=== PATIENT | male | born 1950 | race Caucasian/White ===

== ENCOUNTER 2022-02-28 00:35 | Day surgery (SDC) | payer OTHER, SELFPAY ==
--- NOTE | 2022-02-22 10:08 | PC.NURSE ---
Report to the Outpatient Waiting Room, entrance under the green pavilion located off [facility], at time ____1000___ on date __02/28/22 . Planned Procedure Time: __1200 . Time changes happen often and if your time is changed the preop area will call you the afternoon before. - You and your visitor will be asked to self-screen and do not enter if you have any COVID symptoms. - Only one visitor is requested with a max of two and NO children visitors are allowed at this time. - The patient visitor may be requested to leave or wait in car when not with patient due to distancing restrictions. - A mask is optional within the hospital. Patients may have clear liquids (water, carbonated beverages, clear teas, apple juice) until 3 hours prior to surgery with a maximum of 20 ounces. - No food from midnight until time of surgery - Infants may have breast milk until 4 hours before surgery, formula 6 hours prior to surgery. - Children will be allowed to drink immediately following surgery. If applicable, please bring a bottle or sippy cup to assist with drinking. Juice, water, soda, and popsicles are readily available. For infants on formula, please bring formula the day of surgery. Pacifiers are allowed. Take the following medications with a SIP of water the morning of surgery: __NONE Medications to discontinue per physician _ALL VITAMINS AND SUPPLEMENTS 3 DAYS PRE OP LAST DOSE 02/24/22 HIBICLENS SHOWER MORNING OF SURGERY Please no make-up, nail gibraltarian, hairspray, perfume, deodorant, or body powder the day of surgery. No jewelry (including any body piercings) or valuables the day of surgery, leave them at home. Please take a shower or bath the night before, or the morning of, surgery with an antibacterial soap. Wear comfortable, loose fitting clothing. Children are encouraged to wear pajamas. - Jewelry must be removed prior to entering the operating room. Rings and piercings that are not removed may be cut off. - The hospital will not accept responsibility for valuables. - Please leave all valuables, including medications, at home the day of surgery. If you are going home after surgery, a licensed after school driver must drive you home. - NO public transportation without another adult if you receive anesthesia. - We recommend that an adult stay with you for 24 hours following discharge. - We also recommend that you do not drive, make important decision, drink alcoholic beverages, or take any drugs that were not prescribed by your health care provider for at least 24 hours after your discharge time. Follow any additional instructions given to you from your surgeon. If you or anyone in your household have experienced Covid symptoms in the past week, please notify your surgeon or the nurse liaison at the phone number below for possible testing. Telephone instructions given to __PATIENT and asked if any additional questions and then verbalized understanding. Patient advised to call surgeon office or pre surgery nurse liaison [phone] if any additional questions.
[2022-02-22 10:14] VITALS: BMI 26.4
--- NOTE | 2022-02-27 12:12 | P.PNAN_ITS ---
Anes - Initial Pre Proc Eval Procedure: Operation Date: 02/28/22 12:00 Proposed Procedures p Bilateral Inguinal Hernia Repair with Mesh - Zain Silver MD Date/Time: 02/27/22 12:12 Surgeon: Zain Silver MD Pre Op Diagnosis: Bilateral Inguinal Hernia Patient Data Age: 71 Gender: M Height: 1.85 m Weight: 90.75 kg Allergies Allergy/AdvReac Type Severity Reaction Status Date / Time Penicillins Allergy Unknown Swelling/HI Verified 02/28/22 10:49 VES Home Medications Medication Instructions Recorded Confirmed Type sildenafil 25 mg tablet (Viagra) 25 mg PO DAILY PRN Erectile 01/15/22 02/22/22 History Dysfunction ascorbic acid (vitamin C) 500 mg 500 mg PO DAILY 02/22/22 02/28/22 History capsule biotin 10,000 mcg capsule 10,000 mcg PO DAILY 02/22/22 02/28/22 History cyanocobalamin (vitamin B-12) 1,000 mcg PO DAILY 02/22/22 02/28/22 History 1,000 mcg tablet zinc 50 mg tablet 50 mg PO DAILY 02/22/22 02/28/22 History hydrocodone 5 mg-acetaminophen 325 1 - 2 tablet PO Q6H PRN pain #20 02/28/22 Rx mg tablet tabs ibuprofen 600 mg tablet 600 mg PO Q6H PRN pain #14 tabs 02/28/22 Rx Patient hx anesthesia problems: none Family hx anesthesia problems: none Results Review: All pre-operative results and documents have been reviewed as part of the pre- operative evaluation. [facility] Past Medical History Medical History Erectile dysfunction History of atrial fibrillation Surgical History Surgical History History of incisional hernia repair Incisional hernia repair with Parietex composite ventral patch 4.6cm in underlay fashion 12/2015 Hx laparoscopic cholecystectomy Laparoscopic cholecystectomy 03/2012 Family History Family History Father Malignant neoplasm of prostate Family history of heart disease in male family member before age 55 Mother Family history of pancreatic cancer Other Cancer Diabetes mellitus Heart disease Social History Social History Smoking status: Never smoker Alcohol intake: current Living arrangements: with family Spiritual care concerns: No Anes - Eval Final PreProcedure Day of Procedure 02/27/22 12:12 Patient weight: overweight Heart: regular rate and rhythm Lungs: clear to auscultation Airway: Mallampati scale class II Neurological: alert and oriented Last oral intake: >/= 8 hours ASA classification: III Emergent: no Anesthetic plan: proceed Anesthesia type and monitoring: general GIVS and standard monitoring Results Review: All pre-operative results and documents have been reviewed as part of the pre- operative evaluation. Informed Consent: The patient's anesthetic plan and its attendant risks and benefits were discussed with the patient/family/POA. Questions were solicited and answers provided to the satisfaction of the patient/family/POA.
--- NOTE | 2022-02-27 16:01 | PM.SD2 ---
Same Day Admit/Disch: HPI History of Present Illness Chief complaint: Bilateral Inguinal Hernia Narrative: Adria Barrera is a 71 year old male who, while at work, had to lift some heavy exercise equipment and felt bilateral groin pain. This was back in December. Soon thereafter, he noticed a bulge that was large in the right groin and a smaller fullness in the left groin. Patient was then seen in the office. He was found to have fairly large bilateral inguinal hernias. He is taken to surgery now for repair of these hernias. [facility] Past Medical History Medical History Erectile dysfunction History of atrial fibrillation Surgical History Surgical History History of incisional hernia repair Incisional hernia repair with Parietex composite ventral patch 4.6cm in underlay fashion 12/2015 Hx laparoscopic cholecystectomy Laparoscopic cholecystectomy 03/2012 Family History Family History Father Malignant neoplasm of prostate Family history of heart disease in male family member before age 55 Mother Family history of pancreatic cancer Other Cancer Diabetes mellitus Heart disease Social History Social History Smoking status: Never smoker Alcohol intake: current Living arrangements: with family Spiritual care concerns: No Same Day Admit/Disch: Med Pre-admit Medications Home Medications Medication Instructions Recorded Confirmed Type sildenafil 25 mg tablet (Viagra) 25 mg PO DAILY PRN Erectile 01/15/22 02/22/22 History Dysfunction ascorbic acid (vitamin C) 500 mg 500 mg PO DAILY 02/22/22 02/28/22 History capsule biotin 10,000 mcg capsule 10,000 mcg PO DAILY 02/22/22 02/28/22 History cyanocobalamin (vitamin B-12) 1,000 mcg PO DAILY 02/22/22 02/28/22 History 1,000 mcg tablet zinc 50 mg tablet 50 mg PO DAILY 02/22/22 02/28/22 History hydrocodone 5 mg-acetaminophen 325 1 - 2 tablet PO Q6H PRN pain #20 02/28/22 Rx mg tablet tabs ibuprofen 600 mg tablet 600 mg PO Q6H PRN pain #14 tabs 02/28/22 Rx Exam Const: General: comfortable, no acute distress, alert and awake HENMT: Head: normocephalic and atraumatic Mouth: Yes Normal oral and palatal mucosa present Eyes: Conjunctivae: conjunctivae normal Pupils: Equal, round and reactive pupils present EOM: EOMs intact bilaterally Neck: Neck: normal visual inspection, no lymphadenopathy and nontender Resp: Effort & Inspection: normal respiratory effort Auscultation: clear to auscultation bilaterally Cardio: Rate: regular rate Rhythm: regular rhythm Heart sounds: no gallops, no murmurs and no rubs GI: Inspection: non-distended GI Palp: Yes Soft to palpation, No Tenderness to palpation present (GI), No Hepatomegaly present and No Splenomegaly present : Male General Exam: Yes hernia (Bilateral reducible inguinal hernias, both large, outside Hesselbach triang) and Yes other (Right-sided hernia tender) Penis: Yes normal penis Scrotum: scrotum normal Testes: Testes normal Skin: Lesions: no lesions Rashes: no rashes Neuro: General: no focal motor deficits and CN's II-XI intact bilaterally Cranial nerves: Yes Equal, round and reactive pupils present, Yes Bilaterally intact EOM present, Yes facial symmetry and Yes Midline tongue present Speech: normal speech Motor exam (neuro): 5/5 motor strength present throughout and Motor abnormalities not present Extrem: General: no clubbing, cyanosis or edema and edema Psych: Affect: normal affect Thought process: Normal thought process present Insight: Good insight present (Psych) DS: Summary Time Spent with Patient Time attestation: Total time spent providing and/or coordinating discharge services: DS: Admitting Diagnosis Discharge Date 02/28/2022 Admitting Diag
[2022-02-28] VITALS (8 sets, daily range): BP systolic 111–172; BP diastolic 66–94; PULSE 56–72; RESP 12–20; TEMP 36.3; O2SAT 96–100
[2022-02-28] MEDS: ACETAMINOPHEN 500 MG TABLET 1000 MG PO (10:51)
[2022-02-28] MEDS: LACTATED RINGERS 1,000 ML 30 ML IV CONT ×3 (11:00→15:03)
[2022-02-28] MEDS: KETOROLAC 15 MG/ML VIAL (*BKC) IV PUSH (11:02)
--- NOTE | 2022-02-28 11:22 | WPDANESEPPF ---
Anes - Initial Pre Proc Eval Procedure: Operation Date: 02/28/22 12:00 Proposed Procedures p Bilateral Inguinal Hernia Repair with Mesh - Zain Silver MD Date/Time: 02/28/22 11:22 Surgeon: Zain Silver MD Pre Op Diagnosis: Bilateral Inguinal Hernia Patient Data Age: 71 Gender: M Height: 1.85 m Weight: 90.75 kg Allergies Allergy/AdvReac Type Severity Reaction Status Date / Time Penicillins Allergy Unknown Swelling/HI Verified 02/28/22 10:49 VES Home Medications Medication Instructions Recorded Confirmed Type sildenafil 25 mg tablet (Viagra) 25 mg PO DAILY PRN Erectile 01/15/22 02/22/22 History Dysfunction ascorbic acid (vitamin C) 500 mg 500 mg PO DAILY 02/22/22 02/28/22 History capsule biotin 10,000 mcg capsule 10,000 mcg PO DAILY 02/22/22 02/28/22 History cyanocobalamin (vitamin B-12) 1,000 mcg PO DAILY 02/22/22 02/28/22 History 1,000 mcg tablet zinc 50 mg tablet 50 mg PO DAILY 02/22/22 02/28/22 History Patient hx anesthesia problems: none Family hx anesthesia problems: post op nausea/vomiting Results Review: All pre-operative results and documents have been reviewed as part of the pre-operative evaluation. [facility] Past Medical History Medical History Erectile dysfunction History of atrial fibrillation Surgical History Surgical History History of incisional hernia repair Incisional hernia repair with Parietex composite ventral patch 4.6cm in underlay fashion 12/2015 Hx laparoscopic cholecystectomy Laparoscopic cholecystectomy 03/2012 Family History Family History Father Malignant neoplasm of prostate Family history of heart disease in male family member before age 55 Mother Family history of pancreatic cancer Other Cancer Diabetes mellitus Heart disease Social History Social History Smoking status: Never smoker Alcohol intake: current Living arrangements: with family Spiritual care concerns: No Anes - Eval Final PreProcedure Day of Procedure 02/28/22 11:22 Patient weight: overweight Heart: regular rate and rhythm Lungs: clear to auscultation Airway: Mallampati scale class III Neurological: alert and oriented Last oral intake: >/= 8 hours ASA classification: II Emergent: no Anesthetic plan: proceed Anesthesia type and monitoring: general (possible LMA) GIVS and LMA and standard monitoring Results Review: All pre-operative results and documents have been reviewed as part of the pre-operative evaluation. Informed Consent: The patient's anesthetic plan and its attendant risks and benefits were discussed with the patient/family/POA. Questions were solicited and answers provided to the satisfaction of the patient/family/POA.
[2022-02-28] MEDS: MIDAZOLAM HCL (*CRX) 2 MG/2 ML VIAL 1 MG IV PUSH (11:35)
--- NOTE | 2022-02-28 11:35 | WPDHPUPDATE1 ---
History and Physical Update Update Date/Time: 02/28/22 11:35 History and Physical has been reviewed, including an updated exam of the patient. There are NO changes in the patient's condition. Risks, benefits, and alternatives have been discussed and questions answered. Patient agrees to proceed with procedure.
[2022-02-28] MEDS: ceFAZolin 2 GM/D5W 50 ML 2 GM/50 ML BAG IVPB (12:02)
[2022-02-28] MEDS: LIDOCAINE HCL 2% LOCAL INJ 20 ML VIAL 40 ML INFILTRATE (12:29)
--- NOTE | 2022-02-28 16:03 | W.PM.PROC2 ---
Procedure Note - Detailed Date of Procedure 02/28/22 Pre-op Diagnosis Bilateral Inguinal Hernia Post-op Diagnosis Same Procedure Performed Repair bilateral inguinal hernias with PerFix Light plug and patch Surgeon Zain Silver MD Library Associate Yolanda Tang ELECTRON MICROSCOPIST Anesthesia General (LMA), Local (2% lidocaine plain) and Other (Xaracoll) Indications Patient was seen in the office and noted to have large inguinal hernias on both the right and the left side. He relates this to lifting heavy exercise equipment while at work. He is taken to surgery now for repair of each of these hernias. Findings Both hernias were large direct inguinal hernias. There was no indirect hernia on either side. The left side was actually a little larger than the right. Description of Procedure Patient was taken to surgery and anesthetic was introduced. Prep and drape of both groins and genitalia was carried out. We started on the patient's right side. The proposed incision was marked on the right inguinal area. Local anesthetic was infiltrated into the proposed incision as well as the deeper subcutaneous tissues. Incision was made and dissection was carried down through the subcutaneous. Crossing veins were cauterized and divided. We continued our dissection down to the external oblique aponeurosis. The aponeurosis was exposed as was the external ring. There was bulging of a hernia through the external ring as well. I infiltrated local deep to the aponeurosis in the area of the spermatic cord. I then opened the aponeurosis laterally and extended this incision medially through the external ring. We carefully dissected the leaves of the aponeurosis free from the underlying spermatic cord contents. The hernia was quite large and the ileoinguinal nerve was preserved but it was very diminutive at the edge of the external ring. We left the ileoinguinal nerve attached to the cord throughout the surgery. Once the inguinal canal was exposed, the hernia was fairly easily seen. It was dissected free from the spermatic cord. It was a large hernia taking up most of the direct space. We dissected any cremasteric fiber or other loose tissue overlying the hernia sac. Eventually the hernia was dissected out circumferentially and completely freed from the cord. I then scored through the transversalis fascia circumferentially around the neck of the hernia about 1 cm away from the fascial edge. I then dunked the hernia into the retroperitoneum. Even though it was a large hernia the defect was not particularly large and a large PerFix Light plug and patch were chosen. The plug was placed in the defect. The edges were sutured to the transversalis fascia with interrupted 3-0 Vicryl suture. The defect was also partially closed with interrupted 3-0 Vicryl suture. I then looked in the spermatic cord for any indirect hernias. After some dissection, I did not see any sign of an indirect hernia. We then cut the patch to the appropriate size. It was placed over the inguinal canal floor such that the lateral leaves with passed beyond the cord. A half piece of Xaracoll was then laid over the patch. The cord and ilioinguinal nerve were then laid over the patch. The external oblique aponeurosis was then closed with interrupted 3-0 Vicryl suture. A 2nd half piece of Xaracoll was placed over the external oblique. Lillie's fascia was then closed with interrupted 3-0 Vicryl suture. Another half piece of Xaracoll was placed in the subcutaneous. Subcuticular 4-0 Vicryl skin suture were used to loosely approximate the skin. Finally a running 4-0 Monocryl skin suture was used to close the skin. I then changed sides with the 1st assistant baseball coach and went to the patient's left side. A mirror image left inguinal incision was drawn on the skin. Local anesthetic was infiltrated in the area of this incision and in the deeper subcutaneous tissues. Incision was made in in similar fashion dissection was carried down
[2022-02-28] MEDS: oxyCODONE HCL (*CRX) 5 MG TAB IR PO (16:20)
== END 2022-02-28 16:25 | disposition home or self-care (01) ==
PROVIDERS: PCP Family Medicine Sports Medicine; Visit Provider Surgery
PROC: (CPT 49505; principal; 2022-02-28 12:00)
DX: K40.20 Bilateral inguinal hernia, without obstruction or gangrene, not specified as recurrent (principal)
CPT/HCPCS: 49505; A9270; C1781; J0690; J1100; J1170; J1885; J2250; J2405; J2704; J3010; J7120

== ENCOUNTER 2023-02-06 10:33 | Outpatient (CLI) | payer MEDICARE, SELFPAY | END 2023-02-06 10:34 | disposition home or self-care (01) | PROVIDERS: PCP Family Medicine; Visit Provider Surgery | DX: K40.91 Unilateral inguinal hernia, without obstruction or gangrene, recurrent (principal); Z01.818 Encounter for other preprocedural examination | CPT/HCPCS: 36415; 86850; 86900; 86901 ==

== ENCOUNTER 2023-02-12 01:09 | Day surgery (SDC) | payer MEDICARE, SELFPAY ==
[2023-01-31 14:35] VITALS: BMI 28.4
--- NOTE | 2023-01-31 14:45 | PC.NURSE ---
PRE-OP INSTRUCTIONS, PLEASE READ CAREFULLY Report to the Outpatient Waiting Room, entrance under the green pavilion located off [facility], at time _1030_ on date _02/12/23_. Planned Procedure Time: _1230_. Time changes happen often and if your time is changed the preop area will call you the afternoon before. - You and your visitor will be asked to self-screen and do not enter if you have any COVID symptoms. - A mask is optional within the hospital at this time. Patients may have clear liquids (water, carbonated beverages, clear teas, apple juice) until 3 hours prior to surgery with a maximum of 20 ounces. - No food from midnight until time of surgery Take the following medications with a SIP of water the morning of surgery: _NONE_ DO NOT STOP ANY OF YOUR OTHER PRESCRIPTION MEDICATIONS PRIOR TO SURGERY ?EXCEPT THE FOLLOWING Medications to discontinue per ANESTHESIA - _VITAMINS & SUPPLEMENTS 3 DAYS PRIOR TO SURGERY, Date to take last dose 02/08/23_ Please no make-up, nail angolan, hairspray, perfume, deodorant, or body powder the day of surgery. No jewelry (including any body piercings) or valuables the day of surgery, leave them at home. Please take a shower or bath the night before, or the morning of, surgery with an antibacterial soap. Wear comfortable, loose fitting clothing. Children are encouraged to wear pajamas. - Jewelry must be removed prior to entering the operating room. Rings and piercings that are not removed may be cut off. - The hospital will not accept responsibility for valuables. - Please leave all valuables, including medications, at home the day of surgery. If you are going home after surgery, a licensed sprinkler truck driver must drive you home. - NO public transportation without another adult if you receive anesthesia. - We recommend that an adult stay with you for 24 hours following discharge. - We also recommend that you do not drive, make important decision, drink alcoholic beverages, or take any drugs that were not prescribed by your health care provider for at least 24 hours after your discharge time. Follow any additional instructions given to you from your surgeon. If you or anyone in your household have experienced Covid symptoms in the past week, please notify your surgeon or the nurse liaison at the phone number below for possible testing. Telephone instructions given to _PATIENT_and asked if any additional questions and then verbalized understanding. Patient advised to call surgeon office or pre surgery nurse liaison [phone] if any additional questions.
--- NOTE | 2023-02-09 11:35 | PM.SD2 ---
Same Day Admit/Disch: HPI History of Present Illness Chief complaint: recurrent left inguinal hernia Narrative: Adria Barrera is a 72 year old male who, in February of this year, had bilateral open inguinal hernia repairs with mesh. In the middle of October, he noted a recurrent bulge on the left side. He was seen in the office and found to have a recurrent left inguinal hernia. He is taken to surgery now for robotic, laparoscopic repair of recurrent left inguinal hernia with mesh. [facility] Past Medical History Medical History Erectile dysfunction History of atrial fibrillation Surgical History Surgical History History of incisional hernia repair Incisional hernia repair with Parietex composite ventral patch 4.6cm in underlay fashion 12/2015 Hx laparoscopic cholecystectomy Laparoscopic cholecystectomy 03/2012 S/P inguinal hernia repair repair bilateral inguinal hernia w/PerFix Light plug & patch 02/28/22 Family History Family History Father Malignant neoplasm of prostate Family history of heart disease in male family member before age 55 Mother Family history of pancreatic cancer Other Cancer Diabetes mellitus Heart disease Social History Social History Smoking status: Never smoker Second hand tobacco smoke exposure: No Alcohol intake: current Drinks per week: 1 Substance use: never Substance use type: does not use Living arrangements: with family Spiritual care concerns: No Same Day Admit/Disch: Med Pre-admit Medications Home Medications Medication Instructions Recorded Confirmed Type sildenafil 25 mg tablet (Viagra) 25 mg PO DAILY PRN Erectile 01/15/22 02/12/23 History Dysfunction ascorbic acid (vitamin C) 500 mg 500 mg PO DAILY 02/22/22 02/12/23 History capsule biotin 10,000 mcg capsule 10,000 mcg PO DAILY 02/22/22 02/12/23 History cyanocobalamin (vitamin B-12) 1,000 mcg PO DAILY 02/22/22 02/12/23 History 1,000 mcg tablet zinc 50 mg tablet 50 mg PO DAILY 02/22/22 02/12/23 History ibuprofen 600 mg tablet 600 mg PO Q6H PRN pain #14 tabs 02/12/23 Rx oxycodone-acetaminophen 5 mg-325 0.5 - 1 tablet PO Q6H PRN pain #10 02/12/23 Rx mg tablet tabs Review of Systems Review of Systems All systems reviewed & are unremarkable except as noted in HPI and below (HPI and those items noted below:) Constitutional Constitutional: Denies chills and Denies fever(s) Cardiovascular Cardiovascular: Denies chest pain, Denies diaphoresis, Denies dyspnea and Denies paroxysmal nocturnal dyspnea Respiratory Respiratory: Denies chest congestion, Denies cough and Denies dyspnea Integumentary/Breasts Skin/Breast: Denies lesions and Denies rash Exam Const: General: comfortable, no acute distress, alert and awake HENMT: Head: normocephalic and atraumatic Mouth: Yes Normal oral and palatal mucosa present Eyes: Conjunctivae: conjunctivae normal Pupils: Equal, round and reactive pupils present EOM: EOMs intact bilaterally Neck: Neck: normal visual inspection, no lymphadenopathy and nontender Resp: Effort & Inspection: normal respiratory effort Auscultation: clear to auscultation bilaterally Cardio: Rate: regular rate Rhythm: regular rhythm Heart sounds: no gallops, no murmurs and no rubs GI: Inspection: non-distended GI Palp: Yes Soft to palpation, No Tenderness to palpation present (GI), No Hepatomegaly present and No Splenomegaly present : Male General Exam: Yes hernia (wide based bulge left groin,nontender, reducible), No tenderness and Yes other (bilat inguinal scars) Penis: Yes normal penis Scrotum: scrotum normal Testes: Testes normal Skin: Lesions: no lesions Rashes: no rashes Neuro: General: no focal motor deficits and CN's II-XI intact bilaterally Cranial ne
[2023-02-12] VITALS (9 sets, daily range): BP systolic 118–177; BP diastolic 56–96; PULSE 55–86; RESP 14–24; TEMP 36.4–36.7; O2SAT 96–99
--- NOTE | 2023-02-12 07:16 | WPDHPUPDATE1 ---
History and Physical Update Update Date/Time: 02/12/23 07:16 History and Physical has been reviewed, including an updated exam of the patient. There are NO changes in the patient's condition. Risks, benefits, and alternatives have been discussed and questions answered. Patient agrees to proceed with procedure.
[2023-02-12] MEDS: LACTATED RINGERS 1,000 ML 30 ML IV CONT ×2 (11:09→14:41)
[2023-02-12] MEDS: KETOROLAC 15 MG/ML VIAL (*BKC) IV PUSH (11:11)
[2023-02-12] MEDS: ACETAMINOPHEN 500 MG TABLET 1000 MG PO (11:11)
--- NOTE | 2023-02-12 11:39 | WPDANESEPPF ---
Anes - Initial Pre Proc Eval Procedure: Operation Date: 02/12/23 12:30 Proposed Procedures p Robotic Laparoscopic Recurrent Left Inguinal Hernia Repair with Mesh - Zain Silver MD Date/Time: 02/12/23 11:39 Surgeon: Zain Silver MD Pre Op Diagnosis: recurrent left inguinal hernia Patient Data Age: 72 Gender: M Height: 1.83 m Weight: 95 kg Last Vital Signs Temp 36.4 C 02/12/23 10:36 Pulse 82 02/12/23 10:36 Resp 18 02/12/23 10:36 BP 166/91 H 02/12/23 10:36 Pulse Ox 99 02/12/23 10:36 O2 Del Method Room Air 02/12/23 10:36 Allergies Allergy/AdvReac Type Severity Reaction Status Date / Time Penicillins Allergy Unknown Swelling/HI Verified 02/12/23 10:39 VES Home Medications Medication Instructions Recorded Confirmed Type sildenafil 25 mg tablet (Viagra) 25 mg PO DAILY PRN Erectile 01/15/22 02/12/23 History Dysfunction ascorbic acid (vitamin C) 500 mg 500 mg PO DAILY 02/22/22 02/12/23 History capsule biotin 10,000 mcg capsule 10,000 mcg PO DAILY 02/22/22 02/12/23 History cyanocobalamin (vitamin B-12) 1,000 mcg PO DAILY 02/22/22 02/12/23 History 1,000 mcg tablet zinc 50 mg tablet 50 mg PO DAILY 02/22/22 02/12/23 History Patient hx anesthesia problems: none Family hx anesthesia problems: none Results Review: All pre-operative results and documents have been reviewed as part of the pre-operative evaluation. [facility] Past Medical History Medical History Erectile dysfunction History of atrial fibrillation Surgical History Surgical History History of incisional hernia repair Incisional hernia repair with Parietex composite ventral patch 4.6cm in underlay fashion 12/2015 Hx laparoscopic cholecystectomy Laparoscopic cholecystectomy 03/2012 S/P inguinal hernia repair repair bilateral inguinal hernia w/PerFix Light plug & patch 02/28/22 Family History Family History Father Malignant neoplasm of prostate Family history of heart disease in male family member before age 55 Mother Family history of pancreatic cancer Other Cancer Diabetes mellitus Heart disease Social History Social History Smoking status: Never smoker Second hand tobacco smoke exposure: No Alcohol intake: current Drinks per week: 1 Substance use: never Substance use type: does not use Living arrangements: with family Spiritual care concerns: No Anes - Eval Final PreProcedure Day of Procedure 02/12/23 11:39 Patient weight: overweight Heart: regular rate and rhythm Lungs: clear to auscultation Airway: Mallampati scale class II Neurological: alert and oriented Last oral intake: >/= 8 hours ASA classification: II Emergent: no Anesthetic plan: proceed Anesthesia type and monitoring: general ETT and standard monitoring Results Review: All pre-operative results and documents have been reviewed as part of the pre-operative evaluation. Informed Consent: The patient's anesthetic plan and its attendant risks and benefits were discussed with the patient/family/POA. Questions were solicited and answers provided to the satisfaction of the patient/family/POA.
--- NOTE | 2023-02-12 12:26 | W.PM.PROC2 ---
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 About 3 months ago he noticed a recurrent bulge in the left inguinal region. He was seen in the office and found to have a wide-based reducible recurrent left inguinal hernia. He is taken to surgery at this time for robotic laparoscopic repair with mesh Findings Patient had a large direct inguinal hernia. The plug from his previous repair was completely disrupted from the direct space and was lying inside the abdomen on its side. No hernia noted on the right side. No other significant findings. Description of Procedure Patient was taken to surgery and induced into general anesthesia. The abdomen is prepped and draped. Trocars were placed in the usual fashion using local anesthetic and placing 1st a 5 mm applied Medical optical trocar. 8 mm robotic trocars were placed under direct visualization and the 5 mm trocar was switched out for an 8 mm. The robot was brought in the field and the camera was docked and targeted. The operating arms were then docked and instruments were positioned appropriately. The surgeon broke scrub and went to the robotic console. A peritoneal flap was started above the inguinal canal structures. The flap was taken down broadly. The left rectus muscle was seen. We followed the left rectus muscle down to Abhi's ligament. We crossed the midline over to the medial aspect of the right rectus and the pubis. Laterally dissection was carried down posterior to the pectinate line. The cord structures were dissected from the lateral aspect of the hernia sac and from the overlying peritoneum. We then gradually began to reduce the hernia sac. The transversalis fascia was carefully dissected off the hernia sac and left in the hernia defect. Eventually we took down the entire direct hernia sac and then dissected the peritoneum at least 4 cm posterior to the lower margin of the hernia defect. I then continued dissecting on the medial aspect of the hernia sac and the lateral aspect of Abhi's ligament. The precipitator operator foramen was found. I dissected at least 2 cm posterior to Abhi's ligament and the pubis. Some further dissection was carried out to ensure that the peritoneal reflection was dissected posteriorly far enough that there would not be any peritoneum encroaching and causing a posteromedial recurrence. All looked good. A 17 x 12 left mid 3D max mesh was then placed in the abdomen. 3-0 Vicryl and 3-0 V lock suture were placed in the abdomen. The mesh was positioned appropriately. 3-0 Vicryl sutures were used to secure it to Abhi's ligament as well as the anterior abdominal wall on the medial and lateral side of the inferior epigastric vessels. I then used the 3-0 V lock suture to close the peritoneal flap from lateral to medial. There was 1 small hole in the flap which I closed with the remainder of the 3-0 Vicryl suture. All looked good. We then removed the instruments and undocked the robot. CO2 was evacuated from the abdominal cavity. The trocars were then removed. Skin wounds were closed with subcuticular 4-0 Monocryl skin suture. The wounds were dressed with Exofin surgical adhesive. The patient was awakened and taken to recovery in good condition. Sponge and needle counts were correct x2. Implants 17 x 12 cm mid left 3DMax mesh Estimated Blood Loss -5 Drains No Packing No Pathology None sent Complications No immediate complications Condition Stable Disposition PACU [facility] Billing Surgery - Charge Forward: Surgery Billing (Robotic laparoscopic repair recurrent left inguinal hernia with mesh)
[2023-02-12] MEDS: ceFAZolin 2 GM/D5W 50 ML 2 GM/50 ML BAG IVPB (12:32)
[2023-02-12] MEDS: ONDANSETRON INJ 4 MG/2 ML VIAL IV PUSH (16:13)
[2023-02-12] MEDS: oxyCODONE HCL (*CRX) 5 MG TAB IR PO (16:25)
== END 2023-02-12 17:35 | disposition home or self-care (01) ==
PROVIDERS: Visit Provider Surgery
PROC: 8E0Y4CZ Robotic Assisted Procedure of Lower Extremity, Percutaneous Endoscopic Approach (ICD-10-PCS; CPT 49650; principal; 2023-02-12 12:30)
DX: K40.91 Unilateral inguinal hernia, without obstruction or gangrene, recurrent (principal); N52.9 Male erectile dysfunction, unspecified; Z98.890 Other specified postprocedural states; Z90.49 Acquired absence of other specified parts of digestive tract; Z86.79 Personal history of other diseases of the circulatory system; Z82.49 Family history of ischemic heart disease and other diseases of the circulatory system; Z80.42 Family history of malignant neoplasm of prostate; Z80.0 Family history of malignant neoplasm of digestive organs
CPT/HCPCS: 49651; S2900; 36415; 86850; 86900; 86901; 88300; A9270; C1781; J0690; J1100; J1170; J1596; J1885; J2250; J2371; J2405; J2704; J2710; J3010; J7120

== ENCOUNTER 2024-04-28 17:39 | Emergency (ER) | payer MEDICARE, SELFPAY ==
--- NOTE | 2024-04-28 17:43 | ED_ITS ---
HPI - Male Genitourinary General Chief complaint: Urogenital-Male Stated complaint: BLOOD IN URINE Source: patient and RN notes reviewed Mode of arrival: ambulatory Limitations: no limitations History of Present Illness HPI Narrative: 73-year-old male presented for complaint of blood in urine. 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 Endorses burning with urination, frequency and abdominal bloating. Denies abdominal pain, flank pain, nausea, vomiting, constipation, diarrhea, fevers or chills. Reports two large BMs today, then developed the bloating symptoms. denies blood in stool. Pt does not take anticoagulants, denies trauma. Related Data Home Medications ?Medication ?Instructions ?Recorded ?Confirmed ?Last Taken ?Type sildenafil 25 mg tablet (Viagra) 25 mg PO DAILY PRN Erectile 01/15/22 04/22/23 Unknown History Dysfunction ascorbic acid (vitamin C) 500 mg 500 mg PO DAILY 02/22/22 04/22/23 02/24/22 History capsule biotin 10,000 mcg capsule 10,000 mcg PO DAILY 02/22/22 04/22/23 02/24/22 History cyanocobalamin (vitamin B-12) 1,000 mcg PO DAILY 02/22/22 04/22/23 02/24/22 History 1,000 mcg tablet zinc 50 mg tablet 50 mg PO DAILY 02/22/22 04/22/23 02/24/22 History Allergies Allergy/AdvReac Type Severity Reaction Status Date / Time Penicillins Allergy Unknown Swelling/HI Verified 04/28/24 17:51 VES Review of Systems Review of Systems: CONSTITUTIONAL: Denies body aches, fever, chills, or sweats. CARDIOVASCULAR: Denies chest pain, palpitations, or edema. RESPIRATORY: Denies cough or dyspnea. GASTROINTESTINAL: Denies abdominal pain, nausea, vomiting, or diarrhea. GENITOURINARY: Reports dysuria, frequency, urgency, hematuria denies flank pain SKIN: Denies rash, itching, or wounds. MUSCULOSKELETAL: Denies back pain or myalgia. [facility] Past Medical History Medical History Erectile dysfunction History of atrial fibrillation Recurrent inguinal hernia Surgical History Surgical History History of incisional hernia repair Incisional hernia repair with Parietex composite ventral patch 4.6cm in underlay fashion 12/2015 Hx laparoscopic cholecystectomy Laparoscopic cholecystectomy 03/2012 S/P inguinal hernia repair repair bilateral inguinal hernia w/PerFix Light plug & patch 02/28/22 Family History Family History Father Malignant neoplasm of prostate Family history of heart disease in male family member before age 55 Mother Family history of pancreatic cancer Other Cancer Diabetes mellitus Heart disease Social History Social History Smoking status: Never smoker Second hand tobacco smoke exposure: No Alcohol intake: current Drinks per week: 1 Substance use: never Substance use type: does not use Living arrangements: with family Spiritual care concerns: No Comments At time of signature, I have reviewed and agree with nursing past medical, surgical, social and family history unless otherwise noted. Please see nursing chart for further information. There is no relevant family history pertinent to the presenting complaint Exam Narrative: GENERAL: Well-appearing ENT: Mucous membranes pink and moist. CHEST: No respiratory distress. Clear to auscultation. HEART: Regular rate and rhythm. ABDOMEN: Soft, nondistended, normal active bowel sounds. Mild suprapubic tenderness/pressure with palpation. No CVA tenderness SKIN: Warm, dry, no rash. NEURO: No focal deficits. Alert and oriented x3. Gait steady. PSYCH: Normal affect. Course Course Emergency Course: Patient is aware of diagnosis, understands and agrees to treatment plan. Anticipatory guidance given. Patient agrees to follow-up as directed and is aware of reasons to seek care at the emergency department. Portions of this record may have been created with voice recognition software Level of Care: Express Care Visit Vital Signs Vital signs: Reviewed Transfer Transfered to: [place] Transportation: Other (private vehicle) Transfer rationale: Pt is agreeable to transfer. Requests transfer to [facility] via private vehicle. Risks of transportation reviewed with pt including injury, worsening of condition and . v/u. will be driving pt; Report called to hospital, spoke with Shonna Abebe PA-C, accepting physician. Pt is in stable condition at time of transfer. Advised to remain NPO and go directly to the hospital. MDM - Male Genitourinary MDM Narrative Medical decision making narrative: Pt presented with gross hematuria, urine is dark red in color with clots. Advised ER transfer. Differential Diagnosis Differential diagnosis: Likely urinary tract infection, urethritis, prostatitis, acute retention of urine and other (nephrolithiasis, kidney disease, renal cancer, bladder cancer, trauma, blood disorder) Discharge Plan Discharge Clinical Impression: Gross hematuria Patient Disposition: Acute Care Hospital Condition: Stable Patient Language: Turkish Prescriptions: No Action sildenafil [Viagra] 25 mg tablet 25 mg PO DAILY PRN (Reason: Erectile Dysfunction) Rx Instructions: administer 30 minutes to 4 hours before activity zinc 50 mg Tablet 50 mg PO DAILY cyanocobalamin (vitamin B-12) 1,000 mcg Tablet 1,000 mcg PO DAILY biotin 10,000 mcg Capsule 10,000 mcg PO DAILY ascorbic acid (vitamin C) 500 mg Capsule 500 mg PO DAILY Follow-up/Referrals: Nicole,Gordon Moreira MD [Primary Care Provider] - Time of Disposition: 18:10
[2024-04-28 17:53] VITALS: BP 171/99; PULSE 98; RESP 16; TEMP 37; O2SAT 99
== END 2024-04-28 18:05 | disposition short-term general hospital (02) ==
PROVIDERS: Emergency Provider Nurse Practitioner Family; PCP Family Medicine
DX: R31.0 Gross hematuria (principal); I48.91 Unspecified atrial fibrillation
CPT/HCPCS: 99212; G0463

== ENCOUNTER 2024-04-28 18:26 | Emergency (ER) | payer MEDICARE, SELFPAY ==
--- NOTE | ~2024-04-28 | CT_ITS ---
CLINICAL INDICATION: Gross hematuria COMPARISON: None. TECHNIQUE: Multiple contiguous axial images of the abdomen and pelvis were performed both prior to an d following the administration of with 100 mL Omnipaque-350 intravenous contrast The dose-length product (DLP) was 1240.96 mGy-cm. Automated exposure control and iterative reconstruction technique were employed. FINDINGS/OBSERVATIONS: Visualized lower thorax: The bilateral lung bases are clear. The heart is enlarged, without pericardial effusion. Small hiatal hernia is present. Liver: The liver demonstrates homogeneous enhancement and is enlarged measuring 22 cm in longitudinal dimens ion. Gallbladder and biliary system: The gallbladder is surgically absent. Pancreas: The pancreas enhances homogeneously without ductal dilatation. Spleen: The spleen enhances homogeneously and is not enlarged measuring 11 cm in longitudinal dimension. Kidneys: Multiple subcentimeter foci of decreased attenuation within the bilateral kidneys, all demonstrating fluid attenuation and without meeting CT criteria for contrast enhancement. Within the distal 3 cm of the right ureter is abnormal enhancement. Additional abnormal contrast enhancement is identified within the right renal pelvis although the rig ht ureter does not demonstrate increased attenuation until the distal 3 cm. The abnormal enhancement within the right renal pelvis is likely artifactual. Significant bladder wall thickening and edema is identified. Abnormal contrast enhancement is identified within the prostatic urethra, possibly the source of abno rmal bleeding. Adrenal glands: Unremarkable. Gastrointestinal tract: Fecal stasis within the colon. Vasculature: Calcified atherosclerotic disease. Lymph nodes: No pathologically enlarged or morphologically suspicious lymph nodes within the retroperitoneum or at the root of the mesentery. Pelvic structures: As above. Body wall and musculoskeletal: Small fat-containing umbilical hernia. No significant degenerative disease within the lower thoracic or lumbosacral spine. IMPRESSION: Findings within the distal right ureter as well as within the prosthetic urethra of abnormal contrast enhancement for which direct visualization is recommended. No abnormal contrast enhancing lesions are identified within the bilateral kidneys. Significant bladder wall thickening and edema, as detailed above. Hepatomegaly. Reviewed, dictated and finalized at location A. IMPRESSION: Findings within the distal right ureter as well as within the prosthetic urethr a of abnormal contrast enhancement for which direct visualization is recommende d. No abnormal contrast enhancing lesions are identified within the bilateral kidn eys. Significant bladder wall thickening and edema, as detailed above. Hepatomegaly.
--- NOTE | 2024-04-28 18:29 | ED_ITS ---
HPI - Male Genitourinary General Chief complaint: Urogenital-Male <Wilma Shen PA-C - Last Filed: 04/28/24 18:32> Stated complaint: blood in urine <Wilma Shen PA-C - Last Filed: 04/28/24 18:32> Time Seen by Provider: 04/28/24 18:29 <Wilma Shen PA-C - Last Filed: 04/28/24 18:32> Focused HPI: patient is a 73-year-old male who presents the ED with report of gross hematuria. Patient reports he began passing skip red blood today. He has noticed numerous clots in his urine. Reports urinary frequency, small void urine, feeling of incomplete emptying. Reports lots of suprapubic pressure with urination. Denies flank or back pain. Denies nausea, vomiting, fevers. Denies previous history of kidney stones. He is not on any anticoagulation. GENERAL: Mildly uncomfortable-appearing, well-nourished, and in no acute distress. HEAD: Normocephalic, atraumatic. CHEST: Clear to auscultation. ?No respiratory distress. HEART: Regular rate and rhythm.? ABD: No significant focal tenderness. No rebound. NEURO: ?Alert and oriented x3. Patient screened in triage and initial orders placed.? ?Additional care and disposition to be based upon?diagnostic testing and treatment. <Wilma Shen PA-C - Last Filed: 04/28/24 18:32> Source: patient <Wilma Shen PA-C - Last Filed: 04/28/24 18:32> Mode of arrival: ambulatory <DEUCE Bolaños Last Filed: 04/28/24 18:32> Limitations: no limitations <DEUCE Bolaños Last Filed: 04/28/24 18:32> Related Data Home medications: Home Medications ?Medication ?Instructions ?Recorded ?Confirmed ?Last Taken ?Type sildenafil 25 mg tablet (Viagra) 25 mg PO DAILY PRN Erectile 01/15/22 04/22/23 Unknown History Dysfunction ascorbic acid (vitamin C) 500 mg 500 mg PO DAILY 02/22/22 04/22/23 02/24/22 History capsule biotin 10,000 mcg capsule 10,000 mcg PO DAILY 02/22/22 04/22/23 02/24/22 History cyanocobalamin (vitamin B-12) 1,000 mcg PO DAILY 02/22/22 04/22/23 02/24/22 History 1,000 mcg tablet zinc 50 mg tablet 50 mg PO DAILY 02/22/22 04/22/23 02/24/22 History <Wilma Shen PA-C - Last Filed: 04/28/24 18:32> Allergies/Adverse reactions: Allergies Allergy/AdvReac Type Severity Reaction Status Date / Time Penicillins Allergy Unknown Swelling/HI Verified 04/28/24 17:51 VES <DEUCE Bolaños Last Filed: 04/28/24 18:32> Review of Systems 2 Review of Systems: All systems reviewed & are unremarkable except as noted in HPI and below <Shonna Abebe PA-C - Last Filed: 04/28/24 23:53> [facility] Past Medical History Medical History: Medical History Erectile dysfunction History of atrial fibrillation Recurrent inguinal hernia <DEUCE Bolaños Last Filed: 04/28/24 18:32> Surgical History Surgical History: Surgical History History of incisional hernia repair Incisional hernia repair with Parietex composite ventral patch 4.6cm in underlay fashion 12/2015 Hx laparoscopic cholecystectomy Laparoscopic cholecystectomy 03/2012 S/P inguinal hernia repair repair bilateral inguinal hernia w/PerFix Light plug & patch 02/28/22 <DEUCE Bolaños Last Filed: 04/28/24 18:32> Family History Family History: Family History Father Malignant neoplasm of prostate Family history of heart disease in male family member before age 55 Mother Family history of pancreatic cancer Other Cancer Diabetes mellitus Heart disease <DEUCE Bolaños Last Filed: 04/28/24 18:32> Social History Social History: Social History Smoking status: Never smoker Second hand tobacco smoke exposure: No Alcohol intake: current Drinks per week: 1 Substance use: never Substance use type: does not use Living arrangements: with family Spiritual care concerns: No <Wilma Shen PA-C - Last Filed: 04/28/24 18:32> Exam 2 Narrative: GENERAL: Well-appearing, well-nourished, and in no acute distress. HEAD: Normocephalic, atraumatic. EYES: EOMI. CHEST: Clear to auscultation. No respiratory distress. No wheezes rales or rhonchi HEART: Regular rate and rhythm. No murmur heard. Normal peripheral pulses. ABDOMEN: Soft, nontender, nondistended, normal active bowel sounds. EXTREMITIES: Normal range of motion. No edema. SKIN: Warm, dry, no rash. NEURO: No focal deficits. Alert and oriented x3. PSYCH: Normal mood and affect <Shonna Abebe PA-C - Last Filed: 04/28/24 23:53> Course Course Emergency Course: Patient updated on his workup and agrees with plan of care <Shonna Abebe PA-C - Last Filed: 04/28/24 23:53> Consultations Consultation #1: Spoke with Dr. Leigh about patient and workup. Will follow up in clinic tomorrow for cystoscopy. Will leave in the [place] for now <Shonna Abebe PA-C - Last Filed: 04/28/24 23:53> Date: 04/28/24 <Shonna Abebe PA-C - Last Filed: 04/28/24 23:53> Vital Signs Vital signs: Vital Signs Temperature 98.2 F 04/28/24 18:30 Pulse Rate 103 H 04/28/24 18:30 Respiratory Rate 18 04/28/24 18:30 Blood Pressure 196/120 H 04/28/24 18:30 Pulse Oximetry 100 04/28/24 18:30 Temperature 98.2 F 04/28/24 18:30 Pulse Rate 103 H 04/28/24 18:30 Respiratory Rate 18 04/28/24 18:30 Blood Pressure 196/120 H 04/28/24 18:30 Pulse Oximetry 100 04/28/24 18:30 <DEUCE Bolaños Last Filed: 04/28/24 18:32> Vital Signs Temperature 98.2 F 04/28/24 18:30 Pulse Rate 103 H 04/28/24 18:30 Respiratory Rate 18 04/28/24 18:30 Blood Pressure 196/120 H 04/28/24 18:30 Pulse Oximetry 100 04/28/24 18:30 Temperature 98.2 F 04/28/24 18:30 Pulse Rate 103 H 04/28/24 18:30 Respiratory Rate 18 04/28/24 18:30 Blood Pressure 196/120 H 04/28/24 18:30 Pulse Oximetry 100 04/28/24 18:30 <Shonna Abebe PA-C - Last Filed: 04/28/24 23:53> MDM - Male Genitourinary MDM Narrative Medical decision making narrative: MSE by SANIA in triage. <DEUCE Bolaños Last Filed: 04/28/24 18:32> MSE by SANIA in triage. Patient presents to the ER for hematuria. Patient is afebrile and nontoxic appearing. Blood pressure elevated upon arrival, this down trended without intervention. CBC with leukocytosis to 17.1. Metabolic panel with normal appearing kidney function. Urine with greater than [address] abdomen and pelvis shows findings within the distal right ureter and prostatic urethra of abnormal contrast enhancement, cystoscopy recommended. Significant bladder wall thickening and edema. CBI was started. His urine is now clear. Spoke with Dr. Leigh about patient and workup. Will follow up in clinic tomorrow for cystoscopy. Will leave in the [place] for now <Shonna Abebe PA-C - Last Filed: 04/28/24 23:53> Differential Diagnosis Differential diagnosis: Likely urinary tract infection, prostatitis, acute retention of urine and other (Hemorrhagic cystitis, bladder cancer) <DEUCE Almonte Last Filed: 04/28/24 23:53> Lab Data Attestation: I reviewed the patient's lab results. <DEUCE Almonte Last Filed: 04/28/24 23:53> Result diagrams: 04/28/24 19:03 04/28/24 19:03 <Wilma Shen PA-C - Last Filed: 04/28/24 18:32> Labs: Lab Results 04/28/24 04/28/24 Range/Units 19:03 19:04 WBC 17.1 H (4.5-10.0) K/mm3 RBC 5.46 (4.6-6.20) M/mm3 Hgb 16.9 (14.0-18.0) g/dL Hct 49.2 (42.0-52.0) % MCV 90.1 (80-100) fl MCH 31.0 (26-34) pg MCHC 34.3 (32-36) g/dl RDW 11.9 (11.5-14.5) % Plt Count 300 (150-375) k/mm3 MPV 10.5 H (7.4-10.4) fl Immature Gran % (Auto) 0.3 (0-0.5) % Neut % (Auto) 78.2 H (45.5-73.1) % Lymph % (Auto) 12.5 L (18.3-44.2) % [place] % (Auto) 7.8 (2.6-8.5) % Eos % (Auto) 0.8 (0-4.4) % Baso % (Auto) 0.4 (0.2-1.2) % Lymph # (Auto) 2.14 (0.9-3.2) K/mm3 [place] # (Auto) 1.3 H (0.1-0.6) K/mm3 Eos # (Auto) 0.1 (0-0.3) K/mm3 Baso # (Auto) 0.1 (0.0-0.1) K/mm3 Abs Immat Gran (auto) 0.05 H (0.00-0.031) K/mm3 Absolute Neuts (auto) 13.4 H (1.3-6.7) K/mm3 Absolute Nucleated RBC 0.000 (0.0-0.012) K/mm3 Nucleated RBC % 0.0 (0.0-0.2) % PT 13.8 (11.1-14.7) Seconds INR 1.0 APTT 28.0 (22.3-36.8) Seconds Sodium 137 (137-145) mmol/L Potassium 4.5 (3.4-5.0) mmol/L Chloride 100 (98-107) mmol/L Carbon Dioxide 27 (22-30) mmol/L Anion Gap 10 (4-12) mmol/L BUN 27 H (9-20) mg/dL Creatinine 0.94 (0.7-1.3) mg/dL Estim Creat Clear Calc 66 ml/min Estimated GFR > 60 (59 - ) Glucose 106 (65-110) mg/dL Calcium 9.4 (8.4-10.2) mg/dL Urine Color Red H (Yellow) Urine Appearance Turbid H (Clear) Urine pH TNP Ur Specific [place] TNP Urine Protein TNP Urine Glucose (UA) TNP Urine Ketones TNP Ur Blood (Man) TNP Urine Nitrate TNP Urine Bilirubin TNP Urine Urobilinogen TNP Add Ur Microanalysis Reviewed Leukocyte Esterase Rfl TNP Urine RBC >100 H (0-2) /hpf Urine WBC >100 H (0-3) /hpf Ur Squamous Epith Cells None seen (Few) /hpf Urine Bacteria None seen /hpf Urine Casts 0-2 <Wilma Shen PA-C - Last Filed: 04/28/24 18:32> Lab Results 04/28/24 04/28/24 Range/Units 19:03 19:04 WBC 17.1 H (4.5-10.0) K/mm3 RBC 5.46 (4.6-6.20) M/mm3 Hgb 16.9 (14.0-18.0) g/dL Hct 49.2 (42.0-52.0) % MCV 90.1 (80-100) fl MCH 31.0 (26-34) pg MCHC 34.3 (32-36) g/dl RDW 11.9 (11.5-14.5) % Plt Count 300 (150-375) k/mm3 MPV 10.5 H (7.4-10.4) fl Immature Gran % (Auto) 0.3 (0-0.5) % Neut % (Auto) 78.2 H (45.5-73.1) % Lymph % (Auto) 12.5 L (18.3-44.2) % [place] % (Auto) 7.8 (2.6-8.5) % Eos % (Auto) 0.8 (0-4.4) % Baso % (Auto) 0.4 (0.2-1.2) % Lymph # (Auto) 2.14 (0.9-3.2) K/mm3 [place] # (Auto) 1.3 H (0.1-0.6) K/mm3 Eos # (Auto) 0.1 (0-0.3) K/mm3 Baso # (Auto) 0.1 (0.0-0.1) K/mm3 Abs Immat Gran (auto) 0.05 H (0.00-0.031) K/mm3 Absolute Neuts (auto) 13.4 H (1.3-6.7) K/mm3 Absolute Nucleated RBC 0.000 (0.0-0.012) K/mm3 Nucleated RBC % 0.0 (0.0-0.2) % PT 13.8 (11.1-14.7) Seconds INR 1.0 APTT 28.0 (22.3-36.8) Seconds Sodium 137 (137-145) mmol/L Potassium 4.5 (3.4-5.0) mmol/L Chloride 100 (98-107) mmol/L Carbon Dioxide 27 (22-30) mmol/L Anion Gap 10 (4-12) mmol/L BUN 27 H (9-20) mg/dL Creatinine 0.94 (0.7-1.3) mg/dL Estim Creat Clear Calc 66 ml/min Estimated GFR > 60 (59 - ) Glucose 106 (65-110) mg/dL Calcium 9.4 (8.4-10.2) mg/dL Urine Color Red H (Yellow) Urine Appearance Turbid H (Clear) Urine pH TNP Ur Specific [place] TNP Urine Protein TNP Urine Glucose (UA) TNP Urine Ketones TNP Ur Blood (Man) TNP Urine Nitrate TNP Urine Bilirubin TNP Urine Urobilinogen TNP Add Ur Microanalysis Reviewed Leukocyte Esterase Rfl TNP Urine RBC >100 H (0-2) /hpf Urine WBC >100 H (0-3) /hpf Ur Squamous Epith Cells None seen (Few) /hpf Urine Bacteria None seen /hpf Urine Casts 0-2 <DEUCE Almonte Last Filed: 04/28/24 23:53> Imaging Data Radiologist's impression: ITS Impressions Abdomen/Pelvis CT 04/28/24 21:36 IMPRESSION: Findings within the distal right ureter as well as within the prosthetic urethra of abnormal contrast enhancement for which direct visualization is recommended. No abnormal contrast enhancing lesions are identified within the bilateral kidneys. Significant bladder wall thickening and edema, as detailed above. Hepatomegaly. <DEUCE Almonte Last Filed: 04/28/24 23:53> Critical Care Time Critical Care Time Critical Care Time: No <DEUCE Almonte Last Filed: 04/28/24 23:53> Discharge Plan Discharge Clinical Impression: Gross hematuria, Acute UTI <DEUCE Bolaños Last Filed: 04/28/24 18:32> Patient Disposition: Home, Self-Care <DEUCE Bolaños Last Filed: 04/28/24 18:32> Condition: Improved <DEUCE Bolaños Last Filed: 04/28/24 18:32> Instructions: Antibiotic Form, Urinary Tract Infection in Men (ED), [place] Catheter Placement and Care (ED) <DEUCE Bolaños Last Filed: 04/28/24 18:32> Additional Instructions: Return to the ER if you experience fever, abdominal pain with nausea and vomiting, you are unable to keep down liquids or solids, or any other symptoms that are concerning to you Remain well hydrated. Take oral antibiotic as prescribed Follow up with urology. They should be getting in contact with you to have some follow up tomorrow <DEUCE Bolaños Last Filed: 04/28/24 18:32> Patient Language: [place] <DEUCE Bolaños Last Filed: 04/28/24 18:32> Prescriptions: New cefdinir 300 mg capsule 300 mg PO Q12H 5 Days Qty: 10 0RF No Action sildenafil [Viagra] 25 mg tablet 25 mg PO DAILY PRN (Reason: Erectile Dysfunction) Rx Instructions: administer 30 minutes to 4 hours before activity zinc 50 mg Tablet 50 mg PO DAILY cyanocobalamin (vitamin B-12) 1,000 mcg Tablet 1,000 mcg PO DAILY biotin 10,000 mcg Capsule 10,000 mcg PO DAILY ascorbic acid (vitamin C) 500 mg Capsule 500 mg PO DAILY <Wilma Shen PA-C - Last Filed: 04/28/24 18:32> Follow-up/Referrals: Rivera,Gordon Moreira MD [Primary Care Provider] - Conrado Leigh MD [Physician] - <Wilma Shen PA-C - Last Filed: 04/28/24 18:32>
[2024-04-28 18:30] VITALS: BP 196/120; PULSE 103; RESP 18; TEMP 36.8; O2SAT 100
[2024-04-28 19:11] LABS: Basophils Absolute Auto 0.1 K/mm3 (0.0-0.1); Basophils Percent Auto 0.4 % (0.2-1.2); Eosinophils Absolute Auto 0.1 K/mm3 (0-0.3); Eosinophils Percent Auto 0.8 % (0-4.4); Hematocrit 49.2 % (42.0-52.0); Hemoglobin 16.9 g/dL (14.0-18.0); Immature Granulocyte Absolute 0.05 K/mm3 (0.00-0.031); Immature Granulocyte Percent A 0.3 % (0-0.5); Lymphocytes Absolute Auto 2.14 K/mm3 (0.9-3.2); Lymphocytes Percent Auto 12.5 % (18.3-44.2); Mean Corpuscular HGB Conc 34.3 g/dl (32-36); Mean Corpuscular Volume 90.1 fl (80-100); Mean Platelet Volume 10.5 fl (7.4-10.4); Monocytes Absolute Auto 1.3 K/mm3 (0.1-0.6); Monocytes Percent Auto 7.8 % (2.6-8.5); Neutrophils Absolute Auto 13.4 K/mm3 (1.3-6.7); Neutrophils Percent Auto 78.2 % (45.5-73.1); Platelet Count Result 300 k/mm3 (150-375); Red Blood Count 5.46 M/mm3 (4.6-6.20); Red Cell Distribution Width 11.9 % (11.5-14.5); White Blood Count 17.1 K/mm3 (4.5-10.0)
[2024-04-28 19:22] LABS: Anion Gap 10 mmol/L (4-12); Blood Urea Nitrogen 27 mg/dL (9-20); Calcium 9.4 mg/dL (8.4-10.2); Carbon Dioxide 27 mmol/L (22-30); Chloride 100 mmol/L (98-107); Estimated CRCL calculation 66 ml/min; Estimated Glomerular Filt Rate > 60; Glucose 106 mg/dL (65-110); Potassium 4.5 mmol/L (3.4-5.0); Sodium 137 mmol/L (137-145)
[2024-04-28 19:59] LABS: Appearance Urine Turbid (Clear); Bacteria Urine None Seen /hpf; Color Urine Red (Yellow); Need Manual Microscopic Reviewed; Non Pathogenic Casts 0-2; RBC Urine >100 /hpf (0-2); Squamous Epithelial Cell Urine None Seen /hpf (Few); WBC Urine >100 /hpf (0-3)
[2024-04-28 20:03] LABS: Add Urine Microscopic? YES
[2024-04-28 20:04] LABS: Prothrombin Time 13.8 Seconds (11.1-14.7)
[2024-04-28] MEDS: MORPHINE SULFATE (*CRX) 4 MG/ML INJ IV PUSH (22:29)
[2024-04-28] MEDS: ONDANSETRON INJ 4 MG/2 ML VIAL IV PUSH (22:29)
[2024-04-29 01:00] VITALS: BP 172/82; PULSE 98; RESP 14; O2SAT 98
[2024-04-29 09:34] LABS: Estimated CRCL calculation 62 ml/min; Estimated Glomerular Filt Rate > 60
== END 2024-04-29 01:04 | disposition home or self-care (01) ==
PROVIDERS: Physician Assistant; Emergency Provider Physician Assistant; PCP Family Medicine
DX: N39.0 Urinary tract infection, site not specified (principal); R31.0 Gross hematuria; I48.91 Unspecified atrial fibrillation; Z90.49 Acquired absence of other specified parts of digestive tract
CPT/HCPCS: 36415; 74178; 80048; 81001; 82565; 85025; 85610; 85730; 87040; 87077; 87086; 87186; 96365; 96375; 99284; J0696; J2270; J2405; Q9967

== ENCOUNTER 2025-01-10 15:57 | Emergency (ER) | payer MEDICARE, OTHER, SELFPAY ==
--- OUTSIDE RECORDS SUMMARY | 2024-12-22 05:27 | XMS_ITS | Continuity of Care Document ---
Author Organization [facility] Address [address] [place] [address] Phone Care Team Providers Care Apparatus Repair Mechanic Name Role Phone Leslie Curiel MD Unavailable Unavailable Advance Directives Directive Yes / No Effective Date File Name No Information Encounters Encounter Description Practice Location Reason(s) For Visit Diagnoses Date Provider Providers Copied on Encounter [facility], [address], [place], [place], [id number], tel:[phone] [facility] No Information Veena Nelson. [address] [place] [address], [id number], . tel:[phone] Family History Family Member Type Diagnosis Age At Onset No Information Payers Payer name Insurance type Covered green party ID Authoriza tion(s) [employer] MD[employer] PPO PLANS [id number] Social History Type Description Quantity Date Captured Comments Sex Male Smoking Status No Information Chief Complaint And Reason For Visit No Information Reason For Referral Reason For Referral No Information Plan Of Treatment Date Type Action Status Appointment Tim Barrera BOOKED History Of Present Illness Encounter Date Complaint History Of Prese nt Illness No Information Functional Status Date Functional Assessmen t No Information Instructions Date Instruction Additional Infor mation No Information Assessments Type Assessment Date No Information Patient Care Teams Name Effective Dates (start - stop) Status Members No Information
--- OUTSIDE RECORDS SUMMARY | 2024-12-22 05:27 | XMS_ITS | Continuity of Care Document ---
Author Organization [email or web address] Address [address] [place] [address] Phone Care Team Providers Care Aquatics Assistant Department Head Name Role Phone Leslie Curiel MD Unavailable Unavailable Advance Directives Directive Yes / No Effective Date File Name No Information Encounters Encounter Description Practice Location Reason(s) For Visit Diagnoses Date Provider Providers Copied on Encounter [facility], [address], [place], [place], [id number], tel:[phone] [facility] No Information Veena Nelson. [address] [place] [address], [id number], . tel:[phone] Family History Family Member Type Diagnosis Age At Onset No Information Payers Payer name Insurance type Covered green party ID Authoriza tion(s) [employer] MD[employer] PPO PLANS [id number] Social History Type Description Quantity Date Captured [...]
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
[2025-01-10 16:08] VITALS: BP 185/104; PULSE 77; RESP 16; TEMP 36.4; O2SAT 100
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
[2025-01-10 19:14] VITALS: BP 173/93; PULSE 78; RESP 16; TEMP 36.4; O2SAT 98
[2025-01-10 21:05] VITALS: PULSE 78; RESP 18; O2SAT 100
[2025-01-10 21:17] VITALS: BP 174/86; PULSE 76; RESP 14; O2SAT 100
[2025-01-10 22:23] VITALS: BP 148/88; PULSE 73; RESP 16; O2SAT 97
[2025-01-10 23:44] VITALS: BP 173/93; PULSE 79; RESP 18; O2SAT 95
[2025-01-11 00:31] VITALS: BP 158/91; PULSE 77; RESP 13; O2SAT 96
[2025-01-11 01:00] VITALS: BP 166/93; PULSE 76; RESP 14; O2SAT 97
[2025-01-11 01:30] VITALS: BP 151/92; PULSE 74; RESP 16; O2SAT 96
== END 2025-01-11 02:00 | disposition short-term general hospital (02) ==
PROVIDERS: Emergency Provider Physician Assistant; PCP Family Medicine
DX: S06.360A Traumatic hemorrhage of cerebrum, unspecified, without loss of consciousness, initial encounter (principal); V89.2XXA Person injured in unspecified motor-vehicle accident, traffic, initial encounter
CPT/HCPCS: 70450; 71046; 72125; 72170; 99291; L0140